=== PATIENT | female | born 1960 | race Caucasian/White ===

== ENCOUNTER 2016-11-05 17:59 | Emergency (ER) | payer MEDICAID, SELFPAY ==
[~2016-11-05] VITALS: Ht 157.5 cm; Wt 55.0 kg
[2016-11-05 19:22] LABS: BASOPHILS % 0.4 % (0.0-2.0); EOSINOPHILS % 1.1 % (0.0-5.0); HEMATOCRIT. 41.9 % (36.0-48.0); HEMOGLOBIN. 14.3 g/dL (12.0-16.0); LYMPHOCYTES % 9.4 % (20.0-50.0); MEAN CORPUSCULAR HEMOGLOBIN 30.5 pg (28.0-32.0); MEAN CORPUSCULAR VOLUME 89.5 fL (81.0-99.0); MEAN PLATELET VOLUME 8.3 fl (7.4-10.4); MONOCYTES % 9.9 % (2.0-8.0); NEUTROPHILS % 79.2 % (40.0-76.0); PLATELET 201 x1000/uL (130-400); RED BLOOD CELL COUNT 4.68 mill/uL (4.2-5.4); RED CELL DISTRIBUTION WIDTH 12.6 % (11.6-14.6)
[2016-11-05 19:29] LABS: CHLORIDE 108 mEq/L (98-107)
[2016-11-05 19:32] LABS: CARBON DIOXIDE 29 mEq/L (21-32); ETHANOL BLOOD < 10 mg/dL
[2016-11-05 19:38] LABS: CREATINE KINASE 310 IU/L (26-192); TROPONIN I < 0.02 ng/mL (0.00-0.04)
[2016-11-05 19:41] LABS: HCG SCREEN POSITIVE
[2016-11-05 20:35] VITALS: BP 114/74
== END 2016-11-05 20:53 | disposition home or self-care (01) ==
LOC: ER 18:06
DX: G93.40 Encephalopathy, unspecified (principal); T50.991A Poisoning by other drugs, medicaments and biological substances, accidental (unintentional), initial encounter; Y92.89 Other specified places as the place of occurrence of the external cause; Z87.891 Personal history of nicotine dependence
CPT/HCPCS: 36415; 80053; 80307; 80329; 82550; 82962; 83880; 84443; 84484; 84703; 85025; 93005; 99285; G0482